=== PATIENT | female | born 1930 | race Caucasian/White ===

== ENCOUNTER 2016-12-01 09:36 | Emergency (ER) | payer OTHER ==
[~2016-12-01] VITALS: Ht 157.5 cm; Wt 40.0 kg
[2016-12-01 09:42] VITALS: TEMP 36.7; Ht 157.5 cm; Wt 40.0 kg
--- NOTE | 2016-12-01 10:10 | EMERGENCY ROOM VISIT NOTE ---
History Report prepared by Denny: Kenyon Mike Under the Supervision of: Dr. Shelly Swift D.O. First contact with patient: 09:51 Chief Complaint: OTHER COMPLAINT Stated Complaint: STENT IN LEG-LEG/FOOT TURNING COLORS History of Present Illness The patient is a 85 year old female who presents to the Emergency Room with complaints of intermittent right leg pain beginning about 3 days ago. Per the patient and her daughter, she had a stent placed in her right leg within the last few years but they are unsure the specific time of this procedure. . The patient has had discomfort in her back at baseline with walking, but has now developed off and on right leg pain which is worsened with walking 3 days ago. She had another stent placed in her left leg about 3-6 months ago, and has not had any issues with this. The patient is a former smoker, and stopped when her first stent was placed. The patient denies having any chest pain, shortness of breath, nausea, vomiting, or diarrhea. Her daughter reports the patient is currently on blood thinners. Source of History: patient, family (daughter) Onset: about 3 days ago Position: leg (right) Quality: other (leg pain) Timing: intermittent Modifying Factors (Worsening): movement, other (walking) Associated Symptoms: No SOB, No chest pain, No diarrhea, No nausea, No vomiting Review of Systems See HPI for pertinent positives & negatives. A total of 10 systems reviewed and were otherwise negative. Past Medical & Surgical Medical Problems: (1) Acquired scoliosis (2) back surgery (3) Chronic obstructive lung disease (4) Osteoporosis Surgical Problems: (1) History of intravascular stent placement Family History Heart disease Lung disease Social History Smoking Status: Former Smoker Alcohol Use: occasionally Housing Status: lives alone Occupation Status: retired Current/Historical Medications Scheduled Aspirin (Aspirin Chewable), 81 MG PO Q2D Atorvastatin (Lipitor), 10 MG PO DAILY Clopidogrel (Plavix), 75 MG PO Q2D Lisinopril (Zestril), 2.5 MG PO DAILY Allergies Coded Allergies: No Known Allergies (Unverified , 12/01/16) Physical Exam Vital Signs Date Time Temp Pulse Resp B/P Pulse Ox O2 Delivery O2 Flow Rate FiO2 12/01/16 17:14 85 116/75 12/01/16 16:20 71 17 143/72 92 Room Air 12/01/16 14:19 82 116/90 94 12/01/16 13:32 80 17 146/61 94 12/01/16 11:56 96 21 164/80 92 12/01/16 09:42 36.7 60 18 150/72 93 Room Air Physical Exam General: Cachectic appearing female. HEENT: Head - normocephalic and atraumatic Pupils are equal, round, and reactive to light. Extraocular eye muscles are intact, and sclera are anicteric. Nose - moist nasal mucosa without discharge. Mouth - moist buccal mucosa. Oropharynx is nonerythematous and there is no tonsillar exudate or edema noted. Neck: Supple; no JVD, nuchal rigidity, cervical lymphadenopathy. Heart: Regular rate and rhythm. There is a normal S1 and S2 with no murmurs, clicks, or gallops appreciated. Lungs: Clear to auscultation bilaterally with no wheezes, rales, or rhonchi. Abdomen: Soft, completely nontender, nondistended, with good bowel sounds. There are no palpable pulsatile masses or hepatosplenomegaly. There is no guarding, rigidity, or rebound noted. Extremities: Purple discoloration to the plantar surface and dorsal surface of the right foot with no palpable pedal pulse in right foot. Right foot is cold to the touch. Left foot is also cold to the touch, but pulses are palpable in left foot. Skin: Skin is thin and easily bruising. Medical Decision & Procedures ER Provider Diagnostic Interpretation: Radiology results as stated below per my review and the radiologist's interpretation: RIGHT LEG ARTERIAL DOPPLER STUDY FINDINGS: Ankle brachial indices were unable to be performed due to patient's leg pain. Monophasic waveforms throughout the right lower extremity arterial system. Peak systolic velocity within the right common femoral artery is 335 cm/s consistent with stenosis. Scattered plaque within the right lower extremity arteries. Complete occlusion of the right proximal to mid superficial femoral artery. Distal superficial femoral artery is patent but demonstrates low flow. There appears be low velocity waveforms within a vessel within the mid to distal thigh which could represent a branch of the profunda femoris artery. Low velocity monophasic waveform seen within the popliteal artery posterior tibial artery, and anterior tibial artery. The right dorsalis pedis artery appears occluded. IMPRESSION: 1. Complete occlusion involving the proximal to mid right superficial femoral artery. There is reconstitution of flow within the distal femoral artery likely due to collaterals. 2. Low velocity monophasic waveforms within the right popliteal and calf arteries due to the proximal occlusion. 3. Hemodynamically significant stenosis within the right common femoral artery. Electronically signed by: Lopez Emanuel M.D. 12/01/2016 12:03 PM Dictated Date/Time: 12/01/2016 11:59 AM Laboratory Results 12/01/16 10:22 Red Blood Count 6.54, Mean Corpuscular Volume 94.3, Mean Corpuscular Hemoglobin 31.2, Mean Corpuscular Hemoglobin Concent 33.1, Mean Platelet Volume 10.2, Neutrophils (%) (Auto) 87.3, Lymphocytes (%) (Auto) 6.0, Monocytes (%) (Auto) 4.4, Eosinophils (%) (Auto) 0.6, Basophils (%) (Auto) 0.8, Neutrophils # (Auto) 12.00, Lymphocytes # (Auto) 0.82, Monocytes # (Auto) 0.61, Eosinophils # (Auto) 0.08, Basophils # (Auto) 0.11 12/01/16 10:22 Test 12/01/16 10:22 12/01/16 11:59 White Blood Count 13.75 K/uL (4.8-10.8) Red Blood Count 6.54 M/uL (4.2-5.4) Hemoglobin 20.4 g/dL (12.0-16.0) Hematocrit 61.7 % (37-47) Mean Corpuscular Volume 94.3 fL (80-100) Mean Corpuscular Hemoglobin 31.2 pg (25-34) Mean Corpuscular Hemoglobin Concent 33.1 g/dl (32-36) Platelet Count 574 K/uL (130-400) Mean Platelet Volume 10.2 fL (7.4-10.4) Neutrophils (%) (Auto) 87.3 % Lymphocytes (%) (Auto) 6.0 % Monocytes (%) (Auto) 4.4 % Eosinophils (%) (Auto) 0.6 % Basophils (%) (Auto) 0.8 % Neutrophils # (Auto) 12.00 K/uL (1.4-6.5) Lymphocytes # (Auto) 0.82 K/uL (1.2-3.4) Monocytes # (Auto) 0.61 K/uL (0.11-0.59) Eosinophils # (Auto) 0.08 K/uL (0-0.5) Basophils # (Auto) 0.11 K/uL (0-0.2) RDW Standard Deviation 59.2 fL (36.4-46.3) RDW Coefficient of Variation 17.4 % (11.5-14.5) Immature Granulocyte % (Auto) 0.9 % Immature Granulocyte # (Auto) 0.13 K/uL (0.00-0.02) Anion Gap 10.0 mmol/L (3-11) Est Creatinine Clear Calc Drug Dose 20.9 ml/min Estimated GFR () 47.1 Estimated GFR (Non- 40.6 BUN/Creatinine Ratio 25.5 (10-20) Calcium Level 9.8 mg/dl (8.5-10.1) Prothrombin Time 11.2 SECONDS (9.0-12.0) Prothromb Time International Ratio 1.0 (0.9-1.1) Activated Partial Thromboplast Time 28.4 SECONDS (21.0-31.0) Partial Thromboplastin Ratio 1.1 Laboratory results per my review. Medications Administered Medications (Trade) Dose Ordered Sig/Salma Route Start Time Stop Time Status Last Admin Dose Admin Sodium Chloride 1,000 ml @ 250 mls/hr Q4H STAT IV 12/01/16 11:37 12/01/16 15:36 DC 12/01/16 11:56 250 MLS/HR Sodium Chloride (Nss 500ml) 500 ml @ 999 mls/hr Q31M STAT IV 12/01/16 11:37 12/01/16 12:07 DC 12/01/16 11:37 999 MLS/HR Heparin Sodium/ Dextrose 1 ea NOW STAT N/A 12/01/16 13:47 12/01/16 13:49 DC 12/01/16 13:47 1 EA Heparin Sodium/ Dextrose (Heparin 25,000 Unit/500ml D5W) 25,000 unit STK-MED ONCE .ROUTE 12/01/16 14:04 12/01/16 14:05 DC 12/01/16 14:14 25,000 UNIT Heparin Sodium (Porcine) (Heparin Sq 5000 Unit/0.5ml) 5,000 unit STK-MED ONCE .ROUTE 12/01/16 14:04 12/01/16 14:05 DC 12/01/16 14:14 5,000 UNIT Procedure Medications Ordered: 1137: Ordered NSS 500 ml @ 999 mls/hr IV, and NSS 1,000 ml @ 250 mls/hr IV. 1347: Ordered Heparin bolus and heparin drip ED Course 0955: Past medical records reviewed. The patient was evaluated in room A2. A complete history and physical exam was performed. An IV lock was initiated and labs are drawn as above. The patient will go for an arterial ultrasound of the right lower extremity to rule out occlusion. 1137: Ordered NSS 500 ml @ 999 mls/hr IV, and NSS 1,000 ml @ 250 mls/hr IV. 1256: I reassessed the patient. I reviewed the results of the ultrasound and labs with the patient and her daughter. 1324: Discussed the patient's case with Dr. Murcia who notes he is not on-call. 1335: I updated the patient and told her that Dr. Murcia is not on-call today. I gave them the choice between [facility] and [facility] and they prefer [facility]. 1341: Discussed the patient's case with Dr. Mackey vascular surgery who recommends admission to medicine, and suggested heparinizing with bolus and drip. 1347: Ordered Heparin Sodium/Dextrose 1 ea N/A. 1350: Discussed the patient's case with Dr. Malini Kenny of [facility], who accepts the patient at [facility]. The patient will be transferred to [facility] by [facility] and evaluated for further management. Medical Decision The patient is a 85 year old female who presents to the Emergency Room with complaints of intermittent right leg pain beginning about 3 days ago. Differential Diagnoses: Arterial occlusion, stent occlusion, cellulitis, and peripheral vascular symptoms. Laboratory Interpretations: BUN is 31; sodium is 141; white count is 13.7; hemoglobin is 20.4; platelet count is 574; creatinine is 1.2; glucose is 67; coags are normal. This is an 85-year-old female patient with severe peripheral artery disease with previous stent placement in her lower extremities. Today she's had increasing pain in the right leg and foot with discoloration to the toes and foot. Both feet are extremely cold to touch. Ultrasound of the right lower extremity shows multiple areas of occlusion. I reviewed these ultrasound with vascular surgery in [place] and they recommended transfer for further care. The patient received an IV heparin bolus and was placed on a drip. She will be transferred by [facility] a month. The patient declined wanting anything for pain while here in the emergency department. She remained hemodynamically stable. The patient's previous procedures were thought to be performed here at this hospital as the daughter describes. However, she noted that she had those previous stent placements at [facility] in [facility]. On laboratory testing, the patient had significant dehydration. She received an IV crystalloid bolus and then was placed on an IV saline drip. She was kept nothing by mouth for transfer. Consults Time Called: 1320 Consulting Physician: Dr. Murcia, [facility] Returned Call: 1324 Discussed the patient's case with Dr. Murcia who notes he is not on-call. Additional Consults: Time Called: 1336 Consulted Physician: Dr. Mackey, Vascular Surgery, [facility] Returned Call: 1341 Additional Comments: Discussed the patient's case with Dr. Mackey who recommends admission to medicine, and suggested heparinizing with bolus and drip. Time Called: 1345 Consulted Physician: Dr. Malini Kenny, [facility] Returned Call: 1350 Additional Comments: Discussed the patient's case with Dr. Malini Kenny of [facility], who accepts the patient at [facility]. The patient will be transferred to [facility] by [facility] and evaluated for further management. Impression Primary Impression: Femoral artery occlusion, right Additional Impression: Dehydration Scribe Attestation The scribe's documentation has been prepared under my direction and personally reviewed by me in its entirety. I confirm that the note above accurately reflects all work, treatment, procedures, and medical decision making performed by me. Departure Information Dispostion Transfer Acute Care Facility Referrals Seth Esquivel M.D. (PCP) Patient Instructions My [facility] Problem Qualifiers
[2016-12-01 10:33] LABS: BASO % 0.8 %; BASO ABS # 0.11 K/uL (0-0.2); COMPLETE YES; EOS % 0.6 %; HEMATOCRIT 61.7 % (37-47); IG% 0.9 %; LYMPH ABS # 0.82 K/uL (1.2-3.4); MEAN CELL VOLUME 94.3 fL (80-100); MEAN CORPUSCULAR HEMOGLOBIN 31.2 pg (25-34); MEAN CORPUSCULAR HGB CONC 33.1 g/dl (32-36); MEAN PLATELET VOLUME 10.2 fL (7.4-10.4); MONO % 4.4 %; NEUT % 87.3 %; PLATELET COUNT 574 K/uL (130-400); RED BLOOD COUNT 6.54 M/uL (4.2-5.4); WHITE BLOOD COUNT 13.75 K/uL (4.8-10.8)
[2016-12-01 10:50] LABS: BUN/CREATININE RATIO 25.5 (10-20); CALCIUM 9.8 mg/dl (8.5-10.1); CREATININE 1.2 mg/dl (0.60-1.20); POTASSIUM 4.7 mmol/L (3.5-5.1)
[2016-12-01] MEDS ORDERED: SODIUM CHLORIDE 0.9% 500ML 500 ML IV STA (11:37)
[2016-12-01] MEDS ORDERED: SODIUM CHLORIDE 0.9% 1000ML 1,000 ML IV STA (11:37)
--- NOTE | 2016-12-01 12:04 | DIAGNOSTIC IMAGING REPORT ---
RIGHT LEG ARTERIAL DOPPLER STUDY CLINICAL HISTORY: right leg arterial duplex - blue foot - h/o stent COMPARISON STUDY: None. FINDINGS: Ankle brachial indices were unable to be performed due to patient's leg pain. Monophasic waveforms throughout the right lower extremity arterial system. Peak systolic velocity within the right common femoral artery is 335 cm/s consistent with stenosis. Scattered plaque within the right lower extremity arteries. Complete occlusion of the right proximal to mid superficial femoral artery. Distal superficial femoral artery is patent but demonstrates low flow. There appears be low velocity waveforms within a vessel within the mid to distal thigh which could represent a branch of the profunda femoris artery. Low velocity monophasic waveform seen within the popliteal artery posterior tibial artery, and anterior tibial artery. The right dorsalis pedis artery appears occluded. IMPRESSION: 1. Complete occlusion involving the proximal to mid right superficial femoral artery. There is reconstitution of flow within the distal femoral artery likely due to collaterals. 2. Low velocity monophasic waveforms within the right popliteal and calf arteries due to the proximal occlusion. 3. Hemodynamically significant stenosis within the right common femoral artery. Electronically signed by: Lopez Emanuel M.D. 12/01/2016 12:03 PM Dictated Date/Time: 12/01/2016 11:59 AM
[2016-12-01 12:18] LABS: PARTIAL THROMBOPLASTIN RATIO 1.1; PROTHROMBIN TIME (PATIENT) 11.2 SECONDS (9.0-12.0)
[2016-12-01] MEDS ORDERED: ASPCH81X PO (12:25)
[2016-12-01] MEDS ORDERED: LISI-789 PO (12:25)
[2016-12-01] MEDS ORDERED: CLOP1TAB15 PO (12:25)
[2016-12-01] MEDS ORDERED: ATOR10TA82 PO (12:27)
[2016-12-01] MEDS ORDERED: HEPARIN SOD 5000 UNIT/0.5 ML CARP ONE (14:04)
[2016-12-01] MEDS ORDERED: HEPARIN 25000 UNIT/500 ML D5W ONE (14:04)
[2016-12-01 16:20] VITALS: O2SAT 92
[2016-12-01 17:14] VITALS: BP 116/75; PULSE 85
== END 2016-12-01 17:30 | disposition short-term general hospital (02) ==
LOC: C.EDB 09:39 → C.EDA 17:30
DX: I74.8 Embolism and thrombosis of other arteries (principal); E86.0 Dehydration; J44.9 Chronic obstructive pulmonary disease, unspecified; M81.0 Age-related osteoporosis without current pathological fracture; Z87.891 Personal history of nicotine dependence; Z79.82 Long term (current) use of aspirin; Z79.899 Other long term (current) drug therapy; Z82.49 Family history of ischemic heart disease and other diseases of the circulatory system